=== PATIENT | male | born 1945 ===

== ENCOUNTER 2017-06-18 11:15 | Emergency (ER) | payer MEDICARE ==
[2017-06-18 12:17] VITALS: BP 139/68; RESP 18; TEMP 97; O2SAT 99
[2017-06-18] MEDS ORDERED: Morphine 4 MG/ML VIAL IVP ONE (12:28)
[2017-06-18 12:55] LABS: BASO # 0.1 K/uL (0.0-0.2); BASO % 0.5 % (0.0-2.0); EOS # 0.1 K/uL (0.0-0.7); EOS % 0.5 % (0.0-4.0); HEMATOCRIT 39.9 % (35.0-51.0); LYMPH % 9.2 % (20.0-40.0); MEAN CELL VOLUME 82.5 fl (80.0-94.0); MEAN CORPUSCULAR HEMOGLOBIN 26.7 pg (27.0-31.0); MEAN CORPUSCULAR HGB CONC 32.3 g/dL (33.0-37.0); MEAN PLATELET VOLUME 9.6 fl (7.2-11.7); MONO # 0.6 K/uL (0.0-0.8); MONO % 5.5 % (0.0-10.0); NEUT # 9.3 K/uL (1.8-7.0); NEUT % 84.3 % (50.0-75.0); PLATELET COUNT 137 K/uL (130-400); RED CELL DISTRIBUTION WIDTH 13.8 % (11.5-14.5); WHITE BLOOD COUNT 11.1 K/uL (4.8-10.8)
[2017-06-18 13:10] LABS: BLOOD UREA NITROGEN 19 mg/dl (9-20); CARBON DIOXIDE 30 mmol/L (22-30); CHLORIDE 102 mmol/L (98-107); GFR AFRICAN-AMERICAN > 60; GLUCOSE,RANDOM 143 mg/dL (75-110); POTASSIUM 4.2 MMOL/L (3.6-5.0); SODIUM 141 mmol/l (132-148)
--- NOTE | 2017-06-18 14:23 | ED PDOC ---
HPI: Back Time Seen by Provider: 06/18/17 12:09 Chief Complaint (Nursing): Back Pain Chief Complaint (Provider): Back pain History Per: Patient History/Exam Limitations: no limitations Onset/Duration Of Symptoms: Hrs Current Symptoms Are (Timing): Still Present Quality Of Discomfort: "Pain" Additional History Per: Patient Additional Complaint(s): 72yo male, past medical history of hypertension and high cholesterol, presents to ED for evaluation of back pain and dizziness. Patient states he had breakfast today and after, noticed he had pain from his left leg radiation to his lower back. He also states he was dizzy and felt diaphoretic. Patient reports on episode of vomiting earlier and currently denies any nausea, vomiting , dizziness, leg pain. He states the back pain is still present but denies any chest pain, syncope, palpitations, or headache. He has no other medical complaints. PCP: Dr. Kolby Champagne Past Medical History Reviewed: Historical Data, Nursing Documentation, Vital Signs Vital Signs: Last Vital Signs Temp 97 F L 06/18/17 12:12 Pulse 71 06/18/17 12:12 Resp 18 06/18/17 12:12 BP 139/68 06/18/17 12:12 Pulse Ox 99 06/18/17 12:12 - Medical History PMH: Arthritis, HTN, Hypercholesterolemia, Hyperlipidemia - Surgical History Surgical History: No Surg Hx - Family History Family History: States: Hypertension (father) - Living Arrangements Living Arrangements: With Family - Immunization History Hx Tetanus Toxoid Vaccination: No Hx Influenza Vaccination: No Hx Pneumococcal Vaccination: No - Home Medications Home Medications: Ambulatory Orders Medication Instructions Recorded Atenolol/Chlorthalidone 1 tab PO DAILY 05/08/16 [Atenolol-Chlorthalidone 50-25] Cyclobenzaprine [Cyclobenzaprine 10 mg PO TID #30 tab 05/08/16 HCl] Metoprolol Tartrate [Lopressor] 12.5 mg PO DAILY 05/08/16 Potassium Chloride [Klor-Con M10] 1 tab PO DAILY 05/08/16 Spironolact/Hydrochlorothiazid 1 tab PO DAILY 05/08/16 [Aldactazide 25-25 Tablet] Valsartan/Hydrochlorothiazide 1 tab PO DAILY 05/08/16 [Valsartan-Hctz 160-12.5 mg Tab] amLODIPine [Norvasc] 1 tab PO DAILY 05/08/16 Naproxen [Naprosyn] 500 mg PO BID PRN #20 tablet 06/18/17 - Allergies Allergies/Adverse Reactions: Allergies Allergy/AdvReac Type Severity Reaction Status Date / Time No Known Allergies Allergy Verified 05/08/16 09:45 Review of Systems ROS Statement: Except As Marked, All Systems Reviewed And Found Negative Constitutional: Positive for: Sweats Cardiovascular: Negative for: Chest Pain Gastrointestinal: Negative for: Nausea, Vomiting Musculoskeletal: Positive for: Back Pain Neurological: Negative for: Dizziness Physical Exam - Reviewed Nursing Documentation Reviewed: Yes Vital Signs Reviewed: Yes - Physical Exam Appears: Positive for: Non-toxic, No Acute Distress Head Exam: Positive for: ATRAUMATIC, NORMAL INSPECTION, NORMOCEPHALIC Skin: Positive for: Normal Color Eye Exam: Positive for: Normal appearance Neck: Positive for: Supple Cardiovascular/Chest: Positive for: Regular Rate, Rhythm Respiratory: Positive for: Normal Breath Sounds. Negative for: Respiratory Distress Gastrointestinal/Abdominal: Positive for: Normal Exam, Soft. Negative for: Tenderness Back: Positive for: Other (lower back para-lumbar tenderness) Extremity: Positive for: Normal ROM Neurologic/Psych: Positive for: Alert, Oriented. Negative for: Motor/Sensory Deficits - Laboratory Results Result Diagrams: 06/18/17 12:52 06/18/17 12:52 - ECG ECG: Positive for: Interpreted By Me, Viewed By Me ECG Rhythm: Positive for: Normal QRS, Normal ST Segment, Sinus Rhythm. Negative for: ST/T Changes Rate: 73 O2 Sat by Pulse Oximetry: 99 (RA) Pulse Ox Interpretation: Normal - Progress Re-evaluation Time: 16:54 Condition: Re-examined, Improved Medical Decision Making Medical Decision Making: Impression: Back pain, dizziness Differential: Musculoskeletal pain, lumbar radiculopathy r/o Aortic dissection, AAA Cardiac arrhythmia, vertigo, hypertensive urgency Plan: -- CT Angio -- Labs -- Morphine 4mg IVP Time: 1635 CT Angio FINDINGS: ABDOMINAL AORTA the thoracic and abdominal aorta are unremarkable, without aneurysm, dissection or rupture. No intramural thrombus identified in the thoracic aorta. Trace aortic atherosclerosis appreciated. The celiac axis, superior mesenteric artery, inferior mesenteric artery and the renal arteries are widely patent. The pelvic arteries are unremarkable. OTHER FINDINGS: None. CT ANGIOGRAPHY OF THE ABDOMEN AND PELVIS WITH CONTRAST: Angiographic technique limits evaluation of the abdominal viscera due to arterial phase of enhancement. LIVER: Two small cysts are identified the left lobe liver (these both approximately 1 cm greatest dimension) with diffuse fatty infiltration liver appreciated otherwise. GALLBLADDER AND BILE DUCTS: Unremarkable. PANCREAS: Unremarkable. No gross lesion or ductal dilatation. SPLEEN: Unremarkable. ADRENALS: Unremarkable. No mass. KIDNEYS AND URETERS: Unremarkable. No hydronephrosis. No solid mass. STOMACH AND BOWEL: No obstruction. No gross mural thickening. Sigmoid diverticulosis is appreciate without diverticulitis. Moderate fecal loading seen throughout the large bowel. APPENDIX: Normal appendix. PERITONEUM: Unremarkable. No free fluid. No free air. LYMPH NODES: Unremarkable. No enlarged lymph nodes. BLADDER: Unremarkable. REPRODUCTIVE: Enlarged prostate gland is identified. BONES: Advanced degenerative disease L5-S1. OTHER FINDINGS: None. IMPRESSION: No CT evidence of abdominal aortic aneurysm or dissection. The major abdominal arteries appear widely patent as well as throughout the pelvis. Limited abdominal aortic atherosclerosis is appreciated. No obstructive uropathy bilaterally. Fatty liver with 2 small hepatic cysts identified in the left lobe. Advanced degenerative disc disease L5-S1. Scribe Attestation: Documented by Jackeline Hearn, acting as a scribe for Pia Shoemaker MD Provider Scribe Attestation: All medical record entries made by the Scribe were at my direction and personally dictated by me. I have reviewed the chart and agree that the record accurately reflects my personal performance of the history, physical exam, medical decision making, and the department course for this patient. I have also personally directed, reviewed, and agree with the discharge instructions and disposition. Disposition - Clinical Impression Clinical Impression: Back pain, Degenerative joint disease (DJD) of lumbar spine, Vertigo - Patient ED Disposition Is Patient to be Admitted: No Doctor Will See Patient In The: Office Counseled Patient/Family Regarding: Studies Performed, Diagnosis, Need For Followup - Disposition Referrals: Kolby Healy MD [Family Provider] - Disposition: Routine/Home Disposition Time: 16:55 Condition: GOOD Additional Instructions: Follow up with your PCP in 2-3 days. Prescriptions: Naproxen [Naprosyn] 500 mg PO BID PRN #20 tablet PRN Reason: Pain, Moderate (4-7) Instructions: Vertigo (ED), Back Pain (ED) Print Language: CROATIAN
[2017-06-18 14:30] VITALS: PULSE 73
[2017-06-18 15:10] LABS: NEUTROPHIL 86 % (42-75); TOTAL CELLS COUNTED 100
[2017-06-18] MEDS ORDERED: Iodixanol 320 MG/ML 100 ML BOTTLE IV ONE (15:19)
--- NOTE | 2017-06-18 16:29 | CT ---
PROCEDURE: CT Angiography Abdomen and Pelvis with intravenous contrast HISTORY: back pain leg pain COMPARISON: None. TECHNIQUE: Contiguous axial images of the chest, abdomen and pelvis were obtained in the phase of aortic enhancement. A noncontrast enhanced CT of the chest was also obtained to evaluate for possible intramural thrombus. Coronal and sagittal reformats were generated. IV dose administered: Visipaque 320, 90 cc Radiation dose: Total exam DLP = 1063.87 mGy-cm. This CT exam was performed using one or more of the following dose reduction techniques: Automated exposure control, adjustment of the mA and/or kV according to patient size, and/or use of iterative reconstruction technique. FINDINGS: ABDOMINAL AORTA the thoracic and abdominal aorta are unremarkable, without aneurysm, dissection or rupture. No intramural thrombus identified in the thoracic aorta. Trace aortic atherosclerosis appreciated. The celiac axis, superior mesenteric artery, inferior mesenteric artery and the renal arteries are widely patent. The pelvic arteries are unremarkable. OTHER FINDINGS: None. CT ANGIOGRAPHY OF THE ABDOMEN AND PELVIS WITH CONTRAST: Angiographic technique limits evaluation of the abdominal viscera due to arterial phase of enhancement. LIVER: Two small cysts are identified the left lobe liver (these both approximately 1 cm greatest dimension) with diffuse fatty infiltration liver appreciated otherwise. GALLBLADDER AND BILE DUCTS: Unremarkable. PANCREAS: Unremarkable. No gross lesion or ductal dilatation. SPLEEN: Unremarkable. ADRENALS: Unremarkable. No mass. KIDNEYS AND URETERS: Unremarkable. No hydronephrosis. No solid mass. STOMACH AND BOWEL: No obstruction. No gross mural thickening. Sigmoid diverticulosis is appreciate without diverticulitis. Moderate fecal loading seen throughout the large bowel. APPENDIX: Normal appendix. PERITONEUM: Unremarkable. No free fluid. No free air. LYMPH NODES: Unremarkable. No enlarged lymph nodes. BLADDER: Unremarkable. REPRODUCTIVE: Enlarged prostate gland is identified. BONES: Advanced degenerative disease L5-S1. OTHER FINDINGS: None. IMPRESSION: No CT evidence of abdominal aortic aneurysm or dissection. The major abdominal arteries appear widely patent as well as throughout the pelvis. Limited abdominal aortic atherosclerosis is appreciated. No obstructive uropathy bilaterally. Fatty liver with 2 small hepatic cysts identified in the left lobe. Advanced degenerative disc disease L5-S1.
--- NOTE | 2017-06-19 19:25 | CARD ---
APPROVED REPORT EKG Measurement Heart [id number] <Conclusion> Normal sinus rhythm Normal ECG
== END 2017-06-18 17:30 | disposition home or self-care (01) ==
LOC: SUPCPDRO 11:15 → H.ER 11:15
DX: M54.9 Dorsalgia, unspecified (principal); R42 Dizziness and giddiness; E78.00 Pure hypercholesterolemia, unspecified; I10 Essential (primary) hypertension; M51.37 Other intervertebral disc degeneration, lumbosacral region
CPT/HCPCS: 74175; 80048; 84484; 85025; 93005; 96374; 99283; J2270; Q9967